=== PATIENT | male | born 1945 | race Caucasian/White ===

== ENCOUNTER 2018-06-21 08:07 | Day surgery (SDC) ==
[2018-06-21] MEDS: BETADINE OPTH PREP OP PRN ×2 (09:55→10:15)
[2018-06-21] MEDS: TETRACAINE 0.5% UNIT-DOSE OP PRN ×2 (09:55→10:15)
[2018-06-21] MEDS: CYCLOGYL 2% OPTH OP PRN ×3 (09:56→10:06)
[2018-06-21] MEDS ORDERED: LIDOCAINE 1% 20 ML MDV ID STA (10:02)
[2018-06-21] MEDS ORDERED: BSS WITH EPINEPHRINE OP ONE (10:02)
[2018-06-21] MEDS ORDERED: LIDOCAINE 1%/PHENYLEPHRINE 1.5% BSS (SURGERY) INTRAOCULA ONE (10:02)
[2018-06-21] MEDS ORDERED: BRIMONIDINE TARTRATE 0.2% OPTH SOL OP PRN (10:02)
[2018-06-21] MEDS ORDERED: DEX-MOXI-KETOR OPTH INJ 1/0.5/0.4 MG/ML IO ONE (10:02)
[2018-06-21] MEDS ORDERED: ZOFRAN 4 MG/2 ML IVP ONE (10:02)
[2018-06-21] MEDS ORDERED: SUBLIMAZE ONE (10:20)
[2018-06-21] MEDS ORDERED: VERSED ONE (10:20)
[2018-06-21] MEDS ORDERED: ZOFRAN 4 MG/2 ML ONE (10:20)
[2018-06-21 12:41] VITALS: TEMP 98.4
[2018-06-21 12:56] VITALS: BP 124/54
== END 2018-06-21 11:25 | disposition home or self-care (01) ==
LOC: SURG 08:07
PROVIDERS: ATTEND Ophthalmology
DX: H25.811 Combined forms of age-related cataract, right eye (principal)

== ENCOUNTER 2018-07-05 08:41 | Day surgery (SDC) ==
[2018-07-05] MEDS: CYCLOGYL 2% OPTH OP PRN ×4 (03:41→10:41)
[2018-07-05] MEDS: BETADINE OPTH PREP OP PRN ×2 (10:30→11:25)
[2018-07-05] MEDS: TETRACAINE 0.5% UNIT-DOSE OP PRN ×2 (10:30→11:25)
[2018-07-05] MEDS ORDERED: DEX-MOXI-KETOR OPTH INJ 1/0.5/0.4 MG/ML IO ONE (10:41)
[2018-07-05] MEDS ORDERED: BSS WITH EPINEPHRINE OP ONE (10:41)
[2018-07-05] MEDS ORDERED: LIDOCAINE 1% 20 ML MDV ID STA (10:41)
[2018-07-05] MEDS ORDERED: LIDOCAINE 1%/PHENYLEPHRINE 1.5% BSS (SURGERY) INTRAOCULA ONE (10:41)
[2018-07-05] MEDS ORDERED: ZOFRAN 4 MG/2 ML IVP ONE (10:41)
[2018-07-05] MEDS ORDERED: BRIMONIDINE TARTRATE 0.2% OPTH SOL OP PRN (10:41)
[2018-07-05] MEDS ORDERED: ZOFRAN 4 MG/2 ML ONE (11:35)
[2018-07-05] MEDS ORDERED: SUBLIMAZE ONE (11:35)
[2018-07-05] MEDS ORDERED: VERSED ONE (11:35)
[2018-07-05 13:41] VITALS: TEMP 98.1
[2018-07-05 15:33] VITALS: BP 126/67
== END 2018-07-05 12:45 | disposition home or self-care (01) ==
LOC: SURG 08:41
PROVIDERS: ATTEND Ophthalmology
DX: H25.812 Combined forms of age-related cataract, left eye (principal)